=== PATIENT | female | born 1985 | race Caucasian/White ===

== ENCOUNTER 2020-03-07 20:30 | Emergency (ER) | payer OTHER ==
[~2020-03-07] VITALS: Ht 170.2 cm; Wt 65.3 kg
[2020-03-07] MEDS ORDERED: NASAL MIST126 ML (20:56)
[2020-03-07] MEDS ORDERED: ZOLOFT50 MG (20:56)
[2020-03-07] MEDS ORDERED: CLONAZEPAM0.5 MG (20:56)
== END 2020-03-07 22:42 | disposition home or self-care (01) ==
LOC: ER 20:30
DX: M62.838 Other muscle spasm (principal); F41.0 Panic disorder [episodic paroxysmal anxiety]

== ENCOUNTER 2020-11-02 16:51 | Emergency (ER) | payer OTHER ==
[~2020-11-02] VITALS: Ht 170.2 cm; Wt 65.8 kg
[~2020-11-02 16:51] MED LIST: CLONAZEPAM0.5 MG; NASAL MIST126 ML; ZOLOFT50 MG
[2020-11-02] MEDS ORDERED: DICLOFENAC SODI75 MG PO (18:19)
== END 2020-11-02 18:37 | disposition home or self-care (01) ==
LOC: ER 16:51
DX: M62.838 Other muscle spasm (principal); M25.531 Pain in right wrist

== ENCOUNTER 2022-05-16 03:46 | Emergency (ER) | payer OTHER ==
[~2022-05-16] VITALS: Ht 170.2 cm; Wt 64.4 kg
[~2022-05-16 03:46] MED LIST changes: +DICLOFENAC SODI75 MG PO
[2022-05-16] MEDS ORDERED: TYLENOL ARTHRI650 MG PO (04:18)
[2022-05-16] MEDS ORDERED: CLINDAMYCI300 MG/51 IV (04:18)
[2022-05-16] MEDS ORDERED: GABAPENTIN100 M2 PO (04:18)
[2022-05-16] MEDS ORDERED: KETO10TA2 PO (06:21)
== END 2022-05-16 06:25 ==
LOC: ER 03:46
DX: R07.89 Other chest pain (principal); F41.9 Anxiety disorder, unspecified; Z88.0 Allergy status to penicillin

== ENCOUNTER 2022-05-30 19:43 | Emergency (ER) | payer OTHER ==
[~2022-05-30] VITALS: Ht 175.3 cm; Wt 54.4 kg
[~2022-05-30 19:43] MED LIST changes: +CLINDAMYCI300 MG/51 IV; +GABAPENTIN100 M2 PO; +KETO10TA2 PO; +TYLENOL ARTHRI650 MG PO
== END 2022-05-30 21:57 | disposition home or self-care (01) ==
LOC: ER 19:43
DX: M54.6 Pain in thoracic spine (principal); Z88.0 Allergy status to penicillin

== ENCOUNTER 2022-06-04 12:45 | Outpatient (CLI) | payer OTHER | END 2022-06-04 12:57 | disposition home or self-care (01) | LOC: RAD 12:45 | DX: R06.00 Dyspnea, unspecified (principal); J98.11 Atelectasis ==